=== PATIENT | female | born 1985 | race Hispanic/Latino ===

== ENCOUNTER 2019-06-13 20:30 | Emergency (ER) | payer BC, SELFPAY ==
--- NOTE | ~2019-06-13 | XR_ITS ---
EXAMINATION: XR hand RT min 3V INDICATION: Right hand pain, initial encounter TECHNIQUE: Three views of the right hand are obtained. COMPARISON: None available FINDINGS: There is an acute, traumatic, closed, oblique fracture of the distal shaft of the fifth met acarpal. Alignment is near-anatomic. Soft tissue swelling is seen adjacent to the fracture. The remai brannon osseous structures are unremarkable. The joint spaces are normal. IMPRESSION: 1. Acute fifth metacarpal shaft fracture. Reviewed, dictated and finalized at location A.
[2019-06-13 20:36] VITALS: BP 132/86; PULSE 86; RESP 20; TEMP 37.1; O2SAT 100
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
[2019-06-13] MEDS: IBUPROFEN SUSPENSION 200 MG/10 ML UDC 600 MG PO (21:20)
--- NOTE | 2019-06-13 21:23 | PC.NURSE ---
Ulnar gutter splint applied by central processing technician to right hand/arm. CMS intact.
[2019-06-13 21:52] VITALS: BP 142/76; PULSE 80; RESP 18; O2SAT 98
--- NOTE | 2019-06-21 02:54 | PC.NURSE ---
LATE ENTRY This note is being entered to document information to the patient's record. The following information was omitted on [06/21/19], by [Dee Gerard RN VORB per Dr. Levine arm splint .].
== END 2019-06-13 21:57 | disposition home or self-care (01) ==
PROVIDERS: Emergency Provider Emergency Medicine; PCP Family Medicine
DX: S62.326A Displaced fracture of shaft of fifth metacarpal bone, right hand, initial encounter for closed fracture (principal); Y04.0XXA Assault by unarmed brawl or fight, initial encounter
CPT/HCPCS: 29125; 73130; 99284; A9270

== ENCOUNTER 2022-07-31 14:40 | Outpatient (CLI) | payer OTHER, SELFPAY ==
--- NOTE | ~2022-07-31 | MR_ITS ---
EXAMINATION: MR pituitary wo/w con DATE: 07/31/2022 16:06 INDICATION: Benign neoplasm of pituitary. Headache. TECHNIQUE: Magnetic resonance imaging (MRI) of the brain and brainstem was performed without and with 10 mL MultiHance intravenous contrast. COMPARISON: Brain MRI 02/06/2019 FINDINGS: The pituitary is normal in size with height of 8 mm. There is no intracranial hemorrhage, a cute infarction, or abnormal intracranial mass lesion. The ventricles are normal in size. The paranas al sinuses are clear. The orbits are normal. The mastoid air cells are normal. IMPRESSION: 1. Normal brain. Normal pituitary. Reviewed, dictated and finalized at location A.
--- NOTE | ~2022-07-31 | XR_ITS ---
EXAMINATION: XR chest 2V Exam Date/Time: 07/31/2022 14:54 CDT HISTORY: PALPITATIONS, chest tightness and nonspecific pain Comparison: 05/16/2008. RESULT: Lines, tubes, and devices: None. Lungs and pleura: Lungs appear hyperinflated. Mild diffuse reticulonodular opacities. Cardiomediastinal silhouette: Stable. Other: No acute osseous or upper abdominal finding. IMPRESSION: Pulmonary opacities may represent bronchiolitis, as can be seen with atypical infection, asthma, aspi ration, and small airways disease. Reviewed, dictated and finalized at location K. IMPRESSION: Pulmonary opacities may represent bronchiolitis, as can be seen with atypical i nfection, asthma, aspiration, and small airways disease.
== END 2022-07-31 14:41 | disposition home or self-care (01) ==
PROVIDERS: PCP Family Medicine; Visit Provider Family Medicine
DX: R00.2 Palpitations (principal); R91.8 Other nonspecific abnormal finding of lung field
CPT/HCPCS: 70553; 71046; A9577

== ENCOUNTER 2022-08-20 08:32 | Outpatient (CLI) | payer OTHER, SELFPAY ==
--- NOTE | 2022-08-20 | ECHO_ITS ---
Patient Info Name: Arely Herman Age: 37 years : 1985 Gender: Female Ht: 61 in Wt: 113 lbs BSA: 1.49 m2 HR: 68 bpm BP: 113 / 73 mmHg Heart Rhythm: Sinus Rhythm Technical Quality: Good Exam Date: 08/20/2022 9:04 AM Exam Location: [facility] Patient Status: Outpatient Admit Date: 08/20/2022 Staff Ordering Physician: Rylee, Carla Harris MD Nascar Driver: Matthew Adam RDCS Attending Provider: Rylee, Carla Harris MD Referring Physician: Rylee MELTON; Exam Type: CA echo doppler color flow Study Info Indications - palpatatiion Complete two-dimensional, color flow and Doppler transthoracic echocardiogram is performed. Summary 1. Complete two-dimensional, color flow and Doppler transthoracic echocardiogram is performed. 2. Left ventricular chamber dimension is normal. 3. Left ventricular systolic function is normal, estimated at 55-60%. 4. Right ventricular systolic function is normal. 5. There is trace mitral valve regurgitation. 6. There is trace tricuspid valve regurgitation. Left Ventricle Left ventricular chamber dimension is normal. Left ventricular systolic function is normal, estimated at 55-60%. There is no increased left ventricular wall thickness. The left ventricular diastolic function is indeterminate. Right Ventricle Right ventricular chamber dimension is normal. Right ventricular systolic function is normal. Left Atria Left atrial chamber dimension is normal. Right Atria Right atrial chamber dimension is normal. Atrial Septum Intact interatrial septum visualized by color flow imaging. Aortic Valve The aortic valve is not well visualized. There is no aortic valve stenosis. There is no aortic valve regurgitation. Pulmonic Valve The pulmonic valve is not well visualized. Mitral Valve There is no mitral valve stenosis. There is trace mitral valve regurgitation. Tricuspid Valve There is no significant tricuspid valve stenosis. There is trace tricuspid valve regurgitation. Pericardium/Pleural There is no pericardial effusion. Inferior Vena Cava IVC size is normal. Aorta The aortic root size at the sinus of Valsalva is normal. Left Ventricular Outflow Tract Name Value Normal LVOT 2D LVOT Diameter 1.8 cm LVOT Doppler LVOT Peak Gradient 4 mmHg LVOT Mean Gradient 2 mmHg LVOT VTI 22 cm LVOT VTI/AV VTI Ratio 0.9 LVOT Stroke Volume 60 ml LVOT CO 3.3 l/min LVOT CI 2.2 l/min/m2 Mitral Valve Name Value Normal MV Doppler MV Decel Cooke 376 cm/s2 MV PHT 64 ms MV Area (PHT) 3.4 cm2 4.0-5.0 MV Diastolic Function
--- NOTE | 2022-08-25 15:10 | WPDHOLTEREM ---
Holter/Event Monitor Holter/Event Monitor Date of procedure: 08/20/22 Holter/Event Procedure: 48 Hr Holter Monitor Indications: CP, dyspnea Conclusion: 1. 48 hour holter monitor on 08/20/22. 2. Underlying rhythm is sinus rhythm. HR range 44-171 bpm; average HR 71 bpm. HR at 44 bpm was at 01:14. HR at 171 bpm was at 07:36. 3. There are 2,444 premature supraventricular complexes. No supraventricular tachycardia. 4. There are 295 premature ventricular complexes. No ventricular tachycardia. 5. No sinoatrial or atrioventricular blocks. No significant pauses greater than 2 seconds. 6. Patient reports symptoms of pressure, pain, tightness, feels weird which demonstrate sinus rhythm, HR range 61-112 bpm with 1 PVC.
== END 2022-08-20 08:33 | disposition home or self-care (01) ==
LOC: ANHCARD 08:34
PROVIDERS: PCP Family Medicine; Visit Provider Family Medicine
DX: R00.2 Palpitations (principal); R07.9 Chest pain, unspecified; R06.00 Dyspnea, unspecified
CPT/HCPCS: 93225; 93226; 93306

== ENCOUNTER 2022-09-03 20:32 | Emergency (ER) | payer OTHER, SELFPAY ==
--- NOTE | ~2022-09-03 | XR_ITS ---
EXAMINATION: XR chest 2V DATE: 09/03/2022 21:01 INDICATION: Chest pain TECHNIQUE: PA and lateral views of the chest are obtained. COMPARISON: 07/31/2022 FINDINGS: The lungs are free of acute opacities. No pleural effusion or pneumothorax. The cardiomedia stinal silhouette is normal. The visualized bones and soft tissues are unremarkable. IMPRESSION: 1. No acute cardiopulmonary abnormality. Reviewed, dictated and finalized at location F.
[2022-09-03 20:36] VITALS: BP 117/70; PULSE 95; RESP 15; TEMP 36.6; O2SAT 100
--- NOTE | 2022-09-03 20:37 | ECG_ITS ---
Measurements Intervals [place] Rate: 89 P: 75 TX: 130 QRS: 26 QRSD: 93 T: 55 QT: 338 QTc: 412 Interpretive Statements SINUS RHYTHM WITH SINUS ARRHYTHMIA POSSIBLE RIGHT VENTRICULAR CONDUCTION DELAY [RSR (QR) IN V1/V2] BORDERLINE LEFTWARD AXIS BORDERLINE ECG NO PREVIOUS ECG AVAILABLE FOR COMPARISON Electronically Signed On 09-04-2022 12:39:26 CDT by Gennaro Feliz M.D.
[2022-09-03 20:52] LABS: Basophils Absolute Auto 0.1 K/mm3 (0.0-0.1); Basophils Percent Auto 0.8 % (0.2-1.2); Eosinophils Absolute Auto 0.1 K/mm3 (0-0.3); Eosinophils Percent Auto 1.1 % (0-4.4); Hemoglobin 11.4 g/dL (12.0-15.0); Immature Granulocyte Absolute 0.02 K/mm3 (0.00-0.031); Immature Granulocyte Percent A 0.2 % (0-0.5); Lymphocytes Absolute Auto 3.04 K/mm3 (0.9-3.2); Lymphocytes Percent Auto 33.8 % (18.3-44.2); Mean Corpuscular HGB Conc 32.6 g/dl (32-36); Mean Corpuscular Hemoglobin 29.9 pg (26-34); Mean Corpuscular Volume 91.9 fl (80-100); Mean Platelet Volume 9.2 fl (7.4-10.4); Monocytes Absolute Auto 0.5 K/mm3 (0.1-0.6); Neutrophils Absolute Auto 5.2 K/mm3 (1.3-6.7); Neutrophils Percent Auto 58.1 % (45.5-73.1); Platelet Count Result 371 k/mm3 (150-375); Red Blood Count 3.81 M/mm3 (4.2-5.4); Red Cell Distribution Width 13.4 % (11.5-14.5)
[2022-09-03 21:03] LABS: Partial Thromboplastin Time 30.2 SECONDS (22.3-36.8); Prothrombin Time 13.9 Seconds (11.1-14.7)
[2022-09-03 21:05] LABS: Alanine Aminotransferase 14 U/L (6-35); Albumin Level 4.4 g/dL (3.5-5.1); Alkaline Phosphatase 74 U/L (38-126); Anion Gap 8 mmol/L (8-16); Aspartate Amino Transferase 19 U/L (14-36); Bilirubin,Total 0.4 mg/dL (0.2-1.3); Blood Urea Nitrogen 10 mg/dL (7-17); Calcium 8.8 mg/dL (8.4-10.2); Carbon Dioxide 28 mmol/L (22-30); Chloride 103 mmol/L (98-107); Estimated CRCL calculation 72 ml/min; Estimated Glomerular Filt Rate > 60; Glucose 108 mg/dL (65-110); Lipase 574 U/L (23-300); Potassium 3.6 mmol/L (3.4-5.0); Sodium 139 mmol/L (137-145)
[2022-09-03 21:16] LABS: Troponin I < 0.012 ng/mL (0.000-0.034)
[2022-09-03 21:49] VITALS: O2SAT 100
[2022-09-03] MEDS: ASPIRIN 81 MG CHEWABLE TABLET 324 MG PO (21:49)
[2022-09-03 22:00] VITALS: PULSE 67; RESP 16; O2SAT 100
[2022-09-03 22:15] VITALS: PULSE 70; O2SAT 100
--- NOTE | 2022-09-03 22:26 | ED.GENADULT ---
HPI - General Adult General Chief complaint: Chest Pain Stated complaint: chest pain Time Seen by Provider: 09/03/22 21:05 History of Present Illness HPI narrative: This is a 37-year-old female presenting ED with chief complaint of chest pain times several months. She has been seeing her primary care physician who has done an extensive workup including a Holter monitor lab work and echocardiogram. However the patient is still having the same symptoms and does not agree with her primary care physician that nothing is wrong. Patient describes her pain as a tightness or palpitations in the left side of her chest that is nonradiating, comes and goes, new over the last several months with no exacerbating alleviating factors. No shortness of breath, no fever no chills no cough no exertional component, no lower extremity edema risk factors for DVT /PE. Related Data Allergies Allergy/AdvReac Type Severity Reaction Status Date / Time [place] Nut Allergy Severe SWELL, Uncoded 06/13/19 20:43 THROAT CLOSED PMFSH Past Medical History Medical History Asthma sports induced Surgical History Surgical History Surgical history unknown Social History Social History Smoking packs per day: 0.5 Smoking cigarettes per day: 10.0 Smoking status: Current every day smoker Tobacco type: cigarettes Exam Narrative: APPEARANCE: No apparent distress. Patient is pleasant during the interview Head: atraumatic. EYES: EOMI, NOSE: Atraumatic NECK: Trachea midline RESPIRATORY: No increased rate of breathing,clear to auscultation CARDIOVASCULAR: RRR, no peripheral edema ABDOMINAL: Non-distended soft nontender no guarding or rebound MUSCULOSKELETAl: No obvious deformities NEURO: Alert. Moving 4/4 extremities SKIN:: Warm, dry. Normal color PSYCHIATRIC: Normal affect Course Vital Signs Vital signs: Vital Signs Temperature 97.9 F 09/03/22 20:36 Pulse Rate 95 09/03/22 20:36 Respiratory Rate 15 09/03/22 20:36 Blood Pressure 117/70 09/03/22 20:36 Pulse Oximetry 100 09/03/22 20:36 Oxygen Delivery Room Air 09/03/22 20:36 Temperature 97.9 F 09/03/22 20:36 Pulse Rate 95 09/03/22 20:36 Respiratory Rate 15 09/03/22 20:36 Blood Pressure 117/70 09/03/22 20:36 Pulse Oximetry 100 09/03/22 20:36 Oxygen Delivery Room Air 09/03/22 20:36 Medical Decision Making MDM Narrative Medical decision making narrative: -Presentation: 37-year-old presenting with chest pain times several months. She has received extensive workup on an outpatient basis. My exam here she is has stable vital signs with no concerning findings. Lab work and chest x-ray ordered per nursing protocol. -DDX includes but is not limited to: palpitations, idiopathic tachycardia, anxiety -Co-morbidities complicating care: none -Social determinants of health: patient works as a dental assistant accounting manager lives with her and children -External Chart Review: review of echocardiogram from July 2022 -Hx from independent Sources: none -Discussion of Management/Consultants: none -Independent interpretation of studies: laboratory studies within normal limits. Chest x-ray unremarkable. Independent EKG interpretation: Rhythm [sinus], Rate [89], [place] -[normal], [place] -[normal], QRS [narrow], QTC [normal], T waves -[negative for concerning inversions], ST Segments - [Negative for concerning elevations] Final interpretations: [Normal Sinus Rhythm] Dx tests considered but not ordered: P studies -patient is PERC negative -Procedures: none -Interventions: none -Shared decision making / Disposition: patient was reassured.. There is no life threats at this time. Patient can follow-up with her primary care physician for further management. -RX Vital Signs Vital Si
[2022-09-03 22:30] VITALS: PULSE 68; RESP 16; O2SAT 100
== END 2022-09-03 22:57 | disposition home or self-care (01) ==
PROVIDERS: Emergency Provider Emergency Medicine; PCP Family Medicine
DX: R07.89 Other chest pain (principal); F17.210 Nicotine dependence, cigarettes, uncomplicated; R94.31 Abnormal electrocardiogram [ECG] [EKG]
CPT/HCPCS: 36415; 71046; 80053; 83690; 84484; 85025; 85610; 85730; 93005; 99284; A9270